=== PATIENT | female | born 1965 | race Caucasian/White ===

== ENCOUNTER 2023-01-22 17:11 | Emergency (ER) | payer BC ==
[~2023-01-22] VITALS: Ht 172.7 cm; Wt 89.5 kg
[2023-01-22 17:13] VITALS: TEMP 98
[2023-01-22 20:38] LABS: BASO % 0.4 % (0.0-1.0); EOS # 0.2 10^3/uL (0.0-0.5); EOS % 2.9 % (0.0-3.0); HEMATOCRIT 37.8 % (36.0-47.0); HEMOGLOBIN 12.4 g/dl (12.0-15.5); LYMPH # 2.4 10^3/uL (1.5-5.0); LYMPH % 34.6 % (24.0-44.0); MEAN CORPUSCULAR HEMOGLOBIN 28.2 pg (27.0-33.0); MEAN CORPUSCULAR HGB CONC 32.8 g/dl (32.0-36.5); MEAN CORPUSCULAR VOLUME 86.1 fl (80.0-96.0); MONO # 0.6 10^3/uL (0.0-0.8); NEUTROPHILS # 3.8 10^3/uL (1.5-8.5); NEUTROPHILS % 53.8 % (36.0-66.0); PLATELET COUNT, AUTOMATED 276 10^3/uL (150-450); RED BLOOD COUNT 4.39 10^6/uL (4.00-5.40)
[2023-01-22 20:48] LABS: BLOOD UREA NITROGEN 18 MG/DL (9-23); CARBON DIOXIDE LEVEL 24 MMOL/L (20-31); CHLORIDE LEVEL 111 MMOL/L (98-107); CREATININE FOR GFR 0.92 MG/DL (0.55-1.30); GLOMERULAR FILTRATION RATE > 60.0 (>51); GLUCOSE, FASTING 99 MG/DL (60-100); SODIUM LEVEL 142 MMOL/L (136-145)
[2023-01-22 21:03] LABS: ERYTHROCYTE SEDIMENTATION RATE 34 mm/hr (0-30)
[2023-01-22 22:00] VITALS: BP 136/69
[2023-01-22] MEDS ORDERED: DOXY-443 PO (22:09)
[2023-01-22] MEDS ORDERED: DOXYCYCLINE HYCLATE 100MG TABLET PO ONE (22:10)
[2023-01-22 22:11] VITALS: O2SAT 99
== END 2023-01-22 22:16 | disposition home or self-care (01) ==
LOC: M ED 17:11
DX: L03.032 Cellulitis of left toe (principal); E78.5 Hyperlipidemia, unspecified; J44.9 Chronic obstructive pulmonary disease, unspecified; F17.200 Nicotine dependence, unspecified, uncomplicated

== ENCOUNTER 2023-10-13 10:41 | Day surgery (SDC) | payer BC ==
[~2023-10-13] VITALS: Ht 172.7 cm; Wt 91.6 kg
[~2023-10-13 10:41] MED LIST: ALBU8.5H INH; ATOR1TAB21 PO; DOXY-323 PO; FLUO-365 PO; LR 1,000 ML IV SCH; MECL-136 PO; SPIR12.9 INH; TRAZ-189 PO; VRAY1.5C PO
[2023-10-13] MEDS: PHENYLEPHRINE 2.5% OPHTH SOL 2ML OS SCH (11:21)
[2023-10-13] MEDS: ATROPINE SULFATE 1% OPHTH SOLN 2ML BTL OS SCH (11:21)
[2023-10-13] MEDS: TETRACAINE 0.5% OPHTH SOLN 4ML OS SCH (11:21)
[2023-10-13] MEDS: FLURBIPROFEN 0.03% OPHTH SOLN 2.5 ML OS SCH (11:21)
[2023-10-13] MEDS ORDERED: CEPH500C PO (11:38)
[2023-10-13] MEDS ORDERED: MIDAZOLAM INJ 2MG/2ML VIAL As Ordered ONE (12:37)
[2023-10-13] MEDS: LIDOCAINE 1% SDV 5ML VIAL As Ordered ONE (12:44)
[2023-10-13] MEDS: CEFUROXIME 1MG/0.1ML INTRACAMERAL INJ As Ordered ONE (12:45)
[2023-10-13 13:05] VITALS: BP 134/69; TEMP 97.2; O2SAT 99
== END 2023-10-13 13:30 | disposition home or self-care (01) ==
LOC: M SDC 10:41
PROVIDERS: ATTEND Ophthalmology
DX: H25.12 Age-related nuclear cataract, left eye (principal); J44.9 Chronic obstructive pulmonary disease, unspecified; F17.210 Nicotine dependence, cigarettes, uncomplicated; Z79.899 Other long term (current) drug therapy; Z90.49 Acquired absence of other specified parts of digestive tract
CPT/HCPCS: 66984; J0697; J2250

== ENCOUNTER → 2024-05-05 | Outpatient (CLI) | payer MEDICARE, OTHER ==
[~2024-05-05] MED LIST changes: +CEPH500C PO; -DOXY-323 PO; +DOXY-441 PO; -LR 1,000 ML IV SCH
== END ==
LOC: M PLALAB 08:14
PROVIDERS: ATTEND Internal Medicine Hematology
DX: I82.90 Acute embolism and thrombosis of unspecified vein (principal)